=== PATIENT | male | born 2000 | race African-American/Black ===

== ENCOUNTER 2020-04-12 14:50 | Emergency (ER) | payer SELFPAY ==
--- NOTE | 2020-04-12 16:11 | ER Document Report ---
ED Medical Screen (RME) - General Chief Complaint: Abdominal Pain Stated Complaint: ABDOMINAL PAIN/BLOODY STOOLS Time Seen by Provider: 04/12/20 16:00 Mode of Arrival: Ambulatory Information source: Patient - HPI Notes: 04/12/20 16:12 19-year-old male who just relocated from [place] to this area with a history of biliary atresia presents to the emergency room for abdominal pain that is migrating to his kidneys that started 3 days ago and reports black tarry stools. Denies any history of bowel obstructions, is not on any blood thinners. No history of kidney stones or pyelonephritis. No nausea vomiting diarrhea, fever. Patient takes rifampin, uroselodil for medication. Patient states this feels similar to his previous exacerbation of his biliary atresia. Patient is passing flatus. I have greeted and performed a rapid initial assessment of this patient. A comprehensive ED assessment and evaluation of the patient, analysis of test results and completion of the medical decision making process will be conducted by additional ED providers. PHYSICAL EXAMINATION: GENERAL: Well-appearing, well-nourished and in no acute distress. HEAD: Atraumatic, normocephalic. EYES: Pupils equal round extraocular movements intact, conjunctiva are normal. Jaundiced eyes bilaterally NECK: Normal range of motion CV: s1, s2 regular LUNGS: No respiratory distress abd: generalized, R flank pain - Related Data Allergies/Adverse Reactions: No Known Allergies Allergy (Verified 04/12/20 16:09) Physical Exam - Vital signs Vitals: Temp Pulse Resp BP Pulse Ox 99 F 61 18 150/53 H 96 04/12/20 15:49 04/12/20 15:49 04/12/20 15:49 04/12/20 15:49 04/12/20 15:49 Course - Vital Signs Vital signs: Temp Pulse Resp BP Pulse Ox 99 F 61 18 150/53 H 96 04/12/20 15:49 04/12/20 15:49 04/12/20 15:49 04/12/20 15:49 04/12/20 15:49
[2020-04-12 16:43] LABS: INTERNATIONAL RATION (INR) 1.78; PARTIAL THROMBOPLASTIN TIME 36.9 SEC (23.5-35.8); PROTHROMBIN TIME 20.9 SEC (11.4-15.4)
[2020-04-12 16:44] LABS: ABSOLUTE EOSINOPHILS # (AUTO) 0.2 10^3/uL (0.0-0.6); ABSOLUTE LYMPHOCYTES (AUTO) 0.9 10^3/uL (0.5-4.7); ABSOLUTE MONOCYTES (AUTO) 0.6 10^3/uL (0.1-1.4); ABSOLUTE NEUT (AUTO) 5.3 10^3/uL (1.7-8.2); BASOPHILS % (AUTO) 0.2 % (0-2); EOSINOPHILS % (AUTO) 2.4 % (0-6); HEMATOCRIT 41.9 % (37.9-51.0); LYMPHOCYTES % (AUTO) 13.3 % (13-45); MEAN CORPUSCULAR HEMOGLOBIN 30.6 pg (27.0-33.4); MEAN CORPUSCULAR HGB CONC 35.7 g/dL (32.0-36.0); MEAN CORPUSCULAR VOLUME 86 fl (80-97); MONOCYTES % (AUTO) 8.7 % (3-13); RED BLOOD COUNT 4.89 10^6/uL (4.35-5.55); SEGMENTED NEUTROPHILS % (AUTO) 75.4 % (42-78); TOTAL CELLS COUNTED % (AUTO) 100 %
[2020-04-12 16:55] LABS: ALBUMIN 3.1 g/dL (3.5-5.0); ALKALINE PHOSPHATASE 576 U/L (38-126); ANION GAP 7 (5-19); ASPARTATE AMINO TRANSFERASE 119 U/L (17-59); BILIRUBIN,TOTAL 8.8 mg/dL (0.2-1.3); BLOOD UREA NITROGEN 10 mg/dL (7-20); CALCIUM 8.4 mg/dL (8.4-10.2); CARBON DIOXIDE 25 mmol/L (22-30); CHLORIDE 103 mmol/L (98-107); GLUCOSE 83 mg/dL (75-110); POTASSIUM 3.6 mmol/L (3.6-5.0); TOTAL PROTEIN 6.6 g/dL (6.3-8.2)
[2020-04-12 17:25] LABS: PLATELET COUNT 39 10^3/uL (150-450)
--- NOTE | 2020-04-12 18:46 | RADIOLOGY REPORT (SQ) ---
EXAM DESCRIPTION: CT ABD/PELVIS WITH IV ONLY IMAGES COMPLETED DATE/TIME: 04/12/2020 5:08 pm REASON FOR STUDY: abd pain, black stools. Diffuse abdominal pain. History high blood pressure. COMPARISON: None. TECHNIQUE: CT scan of the abdomen and pelvis performed using helical scanning technique with dynamic intravenous contrast injection. No oral contrast. Images reviewed with lung, soft tissue, and bone windows. Reconstructed coronal and sagittal MPR images reviewed. Delayed images for evaluation of the urinary system also acquired. All images stored on PACS. All CT scanners at this facility use dose modulation, iterative reconstruction, and/or weight based d osing when appropriate to reduce radiation dose to as low as reasonably achievable (ALARA). [facility]: Dose Right [facility]: CareDose [facility]: Dose Right [facility]: Teradose 4D [facility]: Chat Sports CONTRAST TYPE AND DOSE: contrast/concentration: Isovue 350.00 mg/ml; Total Contrast Delivered: 90.0 ml; Total Saline Delivered: 37.0 ml RENAL FUNCTION: GFR > 60. RADIATION DOSE: CT Rad equipment meets quality standard of care and radiation dose reduction techniq ues were employed. CTDIvol: 6.4 - 8.9 mGy. DLP: 841 mGy-cm.. LIMITATIONS: None. FINDINGS: LOWER CHEST: No significant findings. No nodules or infiltrates. LIVER: The liver is shrunken and nodular in contour with heterogeneous appearance. There is a mass i n the left hepatic lobe measuring at least 12.5 x 9 point cm, homogeneous in appearance, with mass ef fect on the hepatic arteries and veins. Hepatic and portal veins are patent. The main portal vein i s enlarged measuring 21 mm diameter. SPLEEN: The spleen is markedly enlarged measuring 21 cm maximum. There is a wedge shaped hypodense a glenn along the peripheral lateral spleen likely representing a splenic infarct. No perisplenic fluid. PANCREAS: No masses. No significant calcifications. No adjacent inflammation or peripancreatic fluid collections. Pancreatic duct not dilated. GALLBLADDER: The gallbladder is not visualized. No surgical clips. ADRENAL GLANDS: No significant masses or asymmetry. RIGHT KIDNEY AND URETER: No solid masses. No significant calcifications. No hydronephrosis or hyd roureter. LEFT KIDNEY AND URETER: No solid masses. No significant calcifications. No hydronephrosis or hydr oureter. AORTA AND VESSELS: The abdominal aorta has normal caliber. The IVC is markedly enlarged. There are small gastric and paraesophageal varices. There also ventral abdominal varices connected with the me senteric veins. No thrombus. RETROPERITONEUM: No retroperitoneal adenopathy, hemorrhage or masses. BOWEL AND PERITONEAL CAVITY: There is no bowel obstruction. No bowel wall thickening. Small amount of ascites in the mesentery and pericolic gutters. APPENDIX: Normal. PELVIS: No mass. No free fluid. Normal bladder. ABDOMINAL WALL: No masses. No hernias. BONES: No significant or acute findings. OTHER: No other significant finding. IMPRESSION: 1. Shrunken nodular contour of the liver with marked splenomegaly and enlarged main portal vein with esophageal, gastric, and abdominal varices, suspicious for hepatic cirrhosis with portal hypertension . 2. There is a mass in the left hepatic lobe which is indeterminate. Given the cirrhotic appearance o f the liver, hepatocellular carcinoma is a consideration. Further evaluation with dedicated hepatic protocol CT or MRI may provide additional information. This would be amenable to image guided percut aneous sampling. 3. Probable splenic infarct. 4. Small amount of ascites. 5. The gallbladder is not definitely identified, possibly surgically absent, congenital absence or se cynthia atrophy is also a consideration if there has been no previous surgery. Clinical correlation is recommended. TECHNICAL DOCUMENTATION: JOB ID: [id number] Quality ID # [id number]: Final reports with documentation of one or more dose reduction techniques (e.g., Au tomated exposure control, adjustment of the mA and/or kV according to patient size, use of iterative reconstruction technique) 2010 [employer]- All Rights Reserved Reading location - IP/workstation name: [email or web address]
[2020-04-13] MEDS ORDERED: ONDANSETRON HCL INJ/PF 4 MG/2 ML SDV IV ONE (02:11)
[2020-04-13] MEDS ORDERED: MORPHINE SULFATE 10 MG/ML INJ IV ONE (02:11)
--- NOTE | 2020-04-13 02:45 | ER Document Report ---
ED General - General Chief Complaint: Abdominal Pain Stated Complaint: ABDOMINAL PAIN/BLOODY STOOLS Time Seen by Provider: 04/12/20 16:00 Mode of Arrival: Ambulatory - HPI Notes: Patient is a 19-year-old male with a history of biliary atresia, who just moved to the area, who presents to the emergency department for evaluation of abdominal pain. He states his been a crampy and sharp abdominal pain, primarily in the upper abdomen, but relates it is sometimes diffuse, nearly constant for the last several days. He has had no fever but some subjective chills at home. No nausea or vomiting. He has had a markedly diminished appetite, states he has not eaten anything in the last 24 hours. He has had some dark stools. He is still urinating. The patient has a history of biliary atresia. He does not know his baseline bilirubin, states that they are just "high." He currently takes ursodiol and rifampin. He is not established with a primary care provider or personnel associate in the area. - Related Data Allergies/Adverse Reactions: No Known Allergies Allergy (Verified 04/12/20 16:09) Home Medications: ursodil. rifampin. lisinopril Past Medical History - General Information source: Patient - Social History Smoking Status: Never Smoker Chew tobacco use (# tins/day): No Frequency of alcohol use: None Drug Abuse: None Family History: Reviewed & Not Pertinent Patient has homicidal ideation: No - Past Medical History Cardiac Medical History: Reports: Hx Hypertension GI Medical History: Reports: Hx Cirrhosis, Other - Biliary atresia Review of Systems - Review of Systems Constitutional: See HPI Gastrointestinal: See HPI -: Yes All other systems reviewed and negative Physical Exam - Vital signs Vitals: Temp Pulse Resp BP Pulse Ox 99 F 61 18 150/53 H 96 04/12/20 15:49 04/12/20 15:49 04/12/20 15:49 04/12/20 15:49 04/12/20 15:49 - Notes Notes: This is a 19-year-old -[place] male, who appears his stated age, no acute distress. Head is normocephalic and atraumatic, pupils are equal round, reactive to light. He does have marked scleral icterus. Nares are patent, oral mucosa is moist. Uvula is midline. Neck supple without meningismus. Heart is regular rate and rhythm, lungs are clear to auscultation bilaterally. Abdomen reveals large ventral hernia and umbilical hernia, well-healed surgical scars noted. He has moderate left upper and right upper quadrant tenderness to palpation without rebound or guarding. No peritoneal signs noted. Extremities without cyanosis, clubbing, edema. Posterior calves are nontender. Skin is warm and dry. Peripheral pulses are equal. Patient is awake and alert, cooperative with examiner. Rectal exam was performed with HAZEL Hurley, present as rotary engraver in the room. He has good rectal tone, stool is heme-negative. Course - Re-evaluation Re-evalutation: 04/13/20 02:46 Patient presents to the emergency department for evaluation. He is a 19-year- old male with a history of biliary atresia, no local personnel associate. He is unsure as to his baseline laboratory investigations. His CT scan reveals findings concerning for a mass, likely splenic infarct. Patient needs further evaluation, I do not have GI or hepatology at this hospital. I will contact [facility] for further recommendations and care. 04/13/20 03:[address] Witt, internal medicine physician at [facility]. We discussed this patient's multiple findings and complex medical issues. He discussed possible anticoagulation for possible splenic infarct. The report did not sound defin itive, and I am concerned about this patient already being auto anticoagulated with his thrombocytopenia and elevated INR secondary to cirrhosis. Not to mention he has multiple varices. Patient is otherwise currently stable. He is accepted to [facility], by Dr. Witt, for further care. - Vital Signs Vital signs: Temp Pulse Resp BP Pulse Ox 99 F 61 18 150/53 H 96 04/12/20 16:03 04/12/20 15:49 04/12/20 15:49 04/12/20 15:49 04/12/20 15:49 - Laboratory Result Diagrams: 04/12/20 16:22 04/12/20 16:22 Laboratory results interpreted by me: 04/12/20 04/12/20 04/12/20 16:22 16:22 16:22 RDW 16.0 H Plt Count 39 L PT 20.9 H APTT 36.9 H Sodium 134.9 L Total Bilirubin 8.8 H Direct Bilirubin 4.0 H AST 119 H ALT 102 H Alkaline Phosphatase 576 H Albumin 3.1 L Urine Protein Urine Blood Urine Bilirubin Urine Urobilinogen 04/13/20 02:48 RDW Plt Count PT APTT Sodium Total Bilirubin Direct Bilirubin AST ALT Alkaline Phosphatase Albumin Urine Protein 100 H Urine Blood SMALL H Urine Bilirubin MODERATE H Urine Urobilinogen 4.0 H - Diagnostic Test Radiology reviewed: Reports reviewed Radiology results interpreted by me: 04/13/20 02:37 Abdomen/Pelvis CT 04/12/20 16:02 IMPRESSION: 1. Shrunken nodular contour of the liver with marked splenomegaly and enlarged main portal vein with esophageal, gastric, and abdominal varices, suspicious for hepatic cirrhosis with portal hypertension. 2. There is a mass in the left hepatic lobe which is indeterminate. Given the cirrhotic appearance of the liver, hepatocellular carcinoma is a consideration. Further evaluation with dedicated hepatic protocol CT or MRI may provide additional information. This would be amenable to image guided percutaneous sampling. 3. Probable splenic infarct. 4. Small amount of ascites. 5. The gallbladder is not definitely identified, possibly surgically absent, c ongenital absence or severe atrophy is also a consideration if there has been no previous surgery. Clinical correlation is recommended. Discharge - Discharge Clinical Impression: Biliary atresia, Splenic infarct, Liver mass, left lobe Condition: Stable Disposition: [facility] Admitting Provider: Obi
[2020-04-13 03:10] LABS: APPEARANCE,URINE CLEAR; BILIRUBIN,URINE MODERATE (NEGATIVE); COLOR,URINE AMBER; GLUCOSE, URINE NEGATIVE (NEGATIVE); KETONES,URINE NEGATIVE (NEGATIVE); LEUKOCYTE ESTERASE,URINE NEGATIVE (NEGATIVE); NITRITE,URINE NEGATIVE (NEGATIVE); PROTEIN,URINE 100 mg/dL (NEGATIVE); URINE SPECIFIC GRAVITY 1.053
[2020-04-13] MEDS ORDERED: RINGERS SOLUTION,LACTATED 1,000 ML IV ONE (03:18)
[2020-04-13 08:19] VITALS: BP 139/74
--- NOTE | 2020-04-13 08:28 | ER Document Report ---
Doctor's Note Notes: 04/13/20 08:27 19-year-old male with biliary atresia seen primarily by Dr. Jorgito Cristobal now being transferred to [facility]. I reevaluated the patient and he appears stable in no acute distress at this time. Stable for transport.
== END 2020-04-13 08:31 | disposition short-term general hospital (02) ==
LOC: ER 14:50
DX: D73.5 Infarction of spleen (principal); Q89.8 Other specified congenital malformations; R16.0 Hepatomegaly, not elsewhere classified; R63.0 Anorexia; D69.6 Thrombocytopenia, unspecified; R17 Unspecified jaundice; I85.00 Esophageal varices without bleeding; I86.4 Gastric varices; R19.5 Other fecal abnormalities; R18.8 Other ascites; K43.9 Ventral hernia without obstruction or gangrene; K42.9 Umbilical hernia without obstruction or gangrene; R10.811 Right upper quadrant abdominal tenderness; R10.812 Left upper quadrant abdominal tenderness; I10 Essential (primary) hypertension; Z79.899 Other long term (current) drug therapy; Z79.2 Long term (current) use of antibiotics
CPT/HCPCS: 99285; 96374; 96375; 36415; 83690; 85025; 85610; 85730; 80053; 81001; 74177; J2270; J2405; J7120; 96361